=== PATIENT | female | born 1945 | race Two or more races ===

== ENCOUNTER 2017-11-13 08:46 | Outpatient (CLI) | payer OTHER ==
[~2017-11-13 08:46] MED LIST: CATAFLAM50 MG PO; HYOSCYAMINE0.125 M1 SL; INTESTINEX1 CA1 PO; OXYC1TAB9 PO
== END 2017-11-13 15:46 | disposition home or self-care (01) ==
LOC: RX STUDY 08:46
DX: J30.1 Allergic rhinitis due to pollen (principal); R13.11 Dysphagia, oral phase; R06.02 Shortness of breath

== ENCOUNTER 2020-05-19 08:01 | Outpatient (CLI) | payer OTHER ==
[~2020-05-19 08:01] MED LIST changes: +CANABIS MEDICINAL; +HYZAAR 50-12.51 EACH; +KETO10TA2 PO; +ORPHENADRINE C100 MG PO; +VOLTAREN100 GM
== END 2020-05-19 08:12 | disposition home or self-care (01) ==
LOC: NUCLEAR 08:01
PROVIDERS: ATTEND Internal Medicine Hematology & Oncology
DX: C50.212 Malignant neoplasm of upper-inner quadrant of left female breast (principal)
CPT/HCPCS: 78815; A9552

== ENCOUNTER 2021-11-08 10:17 | Outpatient (CLI) | payer OTHER | END 2021-11-08 10:24 | disposition home or self-care (01) | LOC: RX STUDY 10:17 | PROVIDERS: ATTEND Surgery | DX: K57.32 Diverticulitis of large intestine without perforation or abscess without bleeding (principal); R19.4 Change in bowel habit; R10.32 Left lower quadrant pain; R19.7 Diarrhea, unspecified; R14.0 Abdominal distension (gaseous); R14.1 Gas pain ==